=== PATIENT | male | born 1960 | race Caucasian/White ===

== ENCOUNTER 2018-09-19 16:38 | Inpatient (IN) | payer OTHER ==
[~2018-09-19] VITALS: Ht 165.1 cm; Wt 68.9 kg
--- NOTE | ~2018-09-19 | P ---
[facility] [place] [address] PROCEDURE REPORT Name: JUSTIN CHAVEZ Room #: 364-P [facility] IN M.R.#: [id number] Admission: 09/19/18 Attend Phys: Marbella Lewis Discharge: Date of : 64 Report #: [id number] THIS REPORT FOR: //name// CC: OBDULIA Lewis BRIEF HISTORY: The patient is a 58-year-old male with a history of rectal bleeding and anemia. POSTOPERATIVE DIAGNOSES: 1. Fully circumferential rectal mass lesion, partially obstruction consistent with rectal cancer. 2. Multiple colon polyps. 3. Diverticulosis coli, mild. MEDICATIONS: Deep sedation with propofol per anesthesia. SPECIMENS: 1. Cecal polyp. 2. Polyp at 60 cm x 2, 3. Polyp at 30 cm. 4. Biopsy mass lesion, rectum. ESTIMATED BLOOD LOSS: 5 mL. PROCEDURE: Colonoscopy to cecum and terminal ileum with snare polypectomy and biopsy. FINDINGS: Prior to propofol sedation, the procedure of colonoscopy discussed with the patient as well as potential risks and its complications. He indicates he understands and desires that we proceed. DESCRIPTION OF PROCEDURE: With the patient in the left lateral decubitus position, digital examination was completed, which revealed no abnormalities. Subsequently, the Olympus video colonoscope was introduced in the rectum, advanced under direct vision to the cecum. Upon entering the rectum, a fungating mass lesion was seen. It was an apple core type lesion and I very carefully and with a little difficulty, we were able to navigate the pediatric colonoscope through this strictured segment. We were then able to advance the scope fully through the remainder of the colon into the cecum. The cecum was identified by the ileocecal valve and the appendiceal orifice. I was able to visualize the distal segment of the terminal ileum, which was inspected and not to be unremarkable. At that point, the scope was slowly withdrawn and careful circumferential views obtained. Upon slow withdrawal of the scope, the prep was good. The mucosa was within normal limits, normal vascular pattern and normal light reflex. As we withdrew the scope, a diminutive polyp was seen in the [facility] [address] [place] [address] PROCEDURE REPORT Name: JUSTIN CHAVEZ Room #: 364-P ADM IN M.R.#: [id number] Admission: 09/19/18 Attend Phys: Marbella Lewis Discharge: Date of : 64 Report #: [id number] cecum and removed by biopsy. The scope was further withdrawn and in the descending colon at 60 cm, two polyps were seen, the largest was about 6-7 mm. They were sessile and both removed by cold snare polypectomy and recovered. The scope was further withdrawn and there was noted be a few moderate sized scattered diverticula. At 30 cm in the mid sigmoid colon, a 12-15 mm benign appearing pedunculated polyp was seen and removed by hot snare polypectomy. There was good hemostasis. The scope was then withdrawn further and no additional abnormalities were noted until the proximal rectum was reached at about 18 cm at which point the mass lesion was seen. It was superficially ulcerated involved the entire circumference. It was partially obstructing. Active bleeding was not encountered. It was probably at least 6 cm in length. The distal aspect of the mass was inspected. There was enough uninvolved distal rectum that I was able to retroflex the scope in the rectum with minimal difficulty. Upon retroflexion, no additional mass lesions were seen. The anal verge was unremarkable. Multiple biopsies were taken of the mass lesion. The patient tolerated the procedure well. Following removal of the scope, I repeated digital rectal exam in a sedated patient and pushing as hard as I could, I am not sure I could feel the distal aspect of the lesion. I can feel something on the tip of my finger and it may have been a fold rather than the lesion. The patient tolerated the procedure well. DISPOSITION: The patient with rectal bleeding and anemia. Unfortunately, he is found to have a large rectal mass. He will require surgical management. Multiple polyps removed and we will follow up on path, but all the polyps appear benign. We will obtain a CT scan of the chest, abdomen and pelvis for further evaluation. By: 1121 [id number] Bryan Wood MD /vika
[2018-09-19 16:41] VITALS: BP 184/83
[2018-09-19 17:01] LABS: HEMATOCRIT 22.6 % (42.0-52.0); HEMOGLOBIN 6.7 gm/dL (14.0-18.0); MCHC 29.6 g/dL (28.0-37.0); MCV 60.8 fL (80.0-100.0); PLATELET COUNT 323 thou/uL (150-400); RBC 3.71 mil/uL (4.50-6.00); RDW 19.8 % (10.5-14.5); WBC 8.1 thou/uL (4.0-11.0)
[2018-09-19 17:02] LABS: CALCIUM 8.4 mg/dL (8.5-10.1); CREATININE 0.9 mg/dL (0.7-1.3)
[2018-09-19 17:04] LABS: URINE BILIRUBIN NEGATIVE (Negative); URINE BLOOD NEGATIVE (Negative); URINE CLARITY CLEAR; URINE COLOR YELLOW; URINE GLUCOSE-RANDOM* NEGATIVE (Negative); URINE KETONES TRACE (Negative); URINE LEUKOCYTES NEGATIVE (Negative); URINE NITRITE NEGATIVE (Negative); URINE PROTEIN (DIPSTICK) NEGATIVE (Negative); URINE SPECIFIC GRAVITY 1.025 (1.005-1.035); URINE UROBILINOGEN 0.2 E.U./dl (0.2-1.0)
[2018-09-19 17:08] LABS: ALBUMIN 3.1 g/dL (3.4-5.0); TOTAL BILIRUBIN 0.2 mg/dL (<0.1-1.0); TOTAL PROTEIN 7.2 g/dL (6.4-8.2)
[2018-09-19 17:40] LABS: ABSOLUTE NEUTROPHILS 6.5 thou/uL (1.4-8.2); ANISOCYTOSIS 2+
[2018-09-19 17:41] LABS: HYPOCHROMASIA 2+; MICROCYTES 2+; POLYCHROMASIA OCCASIONAL
[2018-09-19 18:17] LABS: PROTIME 10.2 Seconds (9.3-11.4)
[2018-09-19 18:28] VITALS: BP 146/76; BP 146/81; BP 150/82; BP 156/83
[2018-09-19 19:15] VITALS: BP 157/77
[2018-09-19 19:45] VITALS: BP 146/76; BP 150/82; BP 156/83; BP 157/77
[2018-09-19 21:09] LABS: ABSOLUTE RETIC COUNT 0.0849 10^6/uL; OBSERVED RETIC COUNT 2.24 % (0.6-2.6)
[2018-09-19 21:37] LABS: % SATURATION 4 % (20-39); IRON 13 ug/dL (65-175); TIBC 340 ug/dL (250-450)
[2018-09-19 22:09] LABS: FERRITIN 4 ng/mL (26-388)
[2018-09-19 22:22] VITALS: BP 184/83
[2018-09-19 23:37] LABS: HEMATOCRIT 23.6 % (42.0-52.0); HEMOGLOBIN 7.2 gm/dL (14.0-18.0)
[2018-09-20] VITALS (7 sets, daily range): BP systolic 144–161; BP diastolic 55–95
[2018-09-20 05:07] LABS: HEMOGLOBIN 8.1 gm/dL (14.0-18.0); MCH 19.9 pg (26.0-34.0); MCHC 30.1 g/dL (28.0-37.0); RBC 4.07 mil/uL (4.50-6.00); RDW 25.5 % (10.5-14.5); WBC 6.3 thou/uL (4.0-11.0)
[2018-09-20 05:12] LABS: MCV 66.3 fL (80.0-100.0)
[2018-09-20 05:27] LABS: CALCIUM 8.2 mg/dL (8.5-10.1); CREATININE 0.8 mg/dL (0.7-1.3)
--- NOTE | 2018-09-20 22:52 | P ---
[facility] [place] [address] PROCEDURE REPORT Name: JUSTIN CHAVEZ Room #: 364-P [facility] IN M.R.#: [id number] Admission: 09/19/18 Attend Phys: Marbella Lewis Discharge: Date of : 64 Report #: [id number] THIS REPORT FOR: //name// CC: OBDULIA Lewis MD DATE OF SERVICE: 09/20/2018 PROCEDURE: Diagnostic esophagogastroduodenoscopy. INDICATION FOR PROCEDURE: This patient has severe iron deficiency and a 2-month history of melanotic stools. He is asymptomatic otherwise from the GI standpoint. Hemoglobin was noted to have been 7.2 at the time of admission. He denies taking nonsteroidal anti-inflammatory medications. He no longer drinks any alcohol. He quit drinking heavily in 2002. He does smoke crack cocaine. Informed consent for this procedure was obtained prior to the administration of any medication. The risks of the procedure, which include bleeding, perforation, infection, complications of sedation and the possibility I could miss something have been explained to the patient. He has indicated his consent by signing it. Propofol was slowly titrated before and during this procedure for patient comfort by the anesthesia service. The Olympus upper videoscope was introduced through the upper esophageal sphincter and advanced under direct visualization to the third portion of the duodenum. Findings are noted on withdrawal of the scope. The duodenal mucosa that was visualized is normal. Pylorus, normal mucosa. Antrum, normal mucosa. Body, normal mucosa. Cardia and fundus, normal mucosa. Retroflex view did not reveal any abnormalities. The scope was withdrawn into the esophagus. The esophageal mucosa appeared normal throughout its entirety. The Z-line is appropriately located at the top of the gastric folds and appears normal. I saw no evidence of any esophageal or gastric varices. The scope was withdrawn. The patient went to the recovery room in stable condition. He tolerated the procedure well. IMPRESSION: Normal EGD to the third portion of the duodenum. RECOMMENDATIONS: Proceed with colonoscopy as the next test in his evaluation of iron deficiency anemia that was severe. [address] [address] PROCEDURE REPORT Name: KATHYJUSTIN Room #: 364-P [facility] IN M.R.#: [id number] Admission: 09/19/18 Attend Phys: Marbella Lewis Discharge: Date of : 64 Report #: [id number] Thank you very much once again for allowing me to participate in his care, Dr. Lewis. <ELECTRONICALLY SIGNED> By: Emilia Landrum DO 09/20/18 2252 [id number] Emilia Landrum DO /nt
[2018-09-21 05:20] VITALS: BP 140/90
[2018-09-21 07:22] VITALS: BP 146/96
[2018-09-21] MEDS ORDERED: NIFEREX TABLET1 EACH PO (09:42)
[2018-09-21 12:35] VITALS: BP 145/87
[2018-09-21 15:59] VITALS: BP 150/95
[2018-09-21 20:54] VITALS: BP 131/81
[2018-09-22 06:02] VITALS: BP 126/66
[2018-09-22 15:06] VITALS: BP 128/76
[2018-09-22 21:20] VITALS: BP 143/85
[2018-09-23 04:50] VITALS: BP 143/90
[2018-09-23 08:03] VITALS: BP 129/84
[2018-09-23 16:08] VITALS: BP 148/92
[2018-09-23 20:30] VITALS: BP 145/83
[2018-09-24] VITALS (11 sets, daily range): BP systolic 122–154; BP diastolic 77–94
[2018-09-24 05:24] LABS: HEMATOCRIT 31.3 % (42.0-52.0); HEMOGLOBIN 9.5 gm/dL (14.0-18.0); MCH 20.5 pg (26.0-34.0); MCHC 30.5 g/dL (28.0-37.0); MCV 67.3 fL (80.0-100.0); RBC 4.64 mil/uL (4.50-6.00); RDW 26.4 % (10.5-14.5); WBC 9.7 thou/uL (4.0-11.0)
[2018-09-24] MEDS ORDERED: KEFLEX500 M1 PO (09:57)
--- NOTE | 2018-09-25 15:06 | PATH ---
[facility] [place] [address] PATHOLOGY RPT PROCEDURE Name: JANAK CHAVEZ Room #: 364-P [facility] IN M.R.#: [id number] Admission: 09/19/18 Date of : 64 Discharge: 09/24/18 Report #: [id number] Path Case #: [id number] [facility] Accession Number: [id number] . 01 Material submitted: . PART A: BX CECAL POLYP PART B: POLYP AT 60CM X2 PART C: POLYP AT 30CM PART D: BX RECTAL MASS . 01 Clinical history: . Pre-OP DX: Anemia, GI bleed Post-OP DX: Colon polyps, rectal mass, diverticulosis . 02 Diagnosis: A. Polyp, cecal polyp, endoscopic biopsy: - Tubular adenoma. - Negative for high-grade dysplasia. . B. Polyp x 2, at 60 cm, endoscopic biopsy: - All fragments sampled showing tubular adenoma. - Negative for high-grade dysplasia. . C. Poly, at 30 cm, endoscopic biopsy: - Tubular adenoma. - Negative for high-grade dysplasia. - Cauterized margin showing unremarkable mucosa. . D. Large intestinal mucosa, rectal mass, endoscopic biopsy: - INVASIVE MODERATELY DIFFERENTIATED ADENOCARCINOMA. [facility]/09/24/2018 . 02 Comment: MSI markers (four immunohistochemical stains) are performed per [facility] cancer committee protocol on block D1. The results will be issued in an addendum to follow. . Dr. Marline Hilario has seen a patient accounting representative slide of part D and concurs with the diagnosis rendered. Findings of this care are telephoned and verified with Ms. Joanne Magana, Nurse Practitioner for Dr. Wood, at 12:35 pm on 09/24/2018. (IUV:pit 09/24/2018) . 02 Addendum: . This addendum is issued subsequent to reviewing the well-controlled MSI immunohistochemical stain (4 immunohistochemical stains) on block D1. . [facility] [address] [place] [address] PATHOLOGY RPT PROCEDURE Name: JANAK CHAVEZ Room #: 364-P [facility] IN M.R.#: [id number] Admission: 09/19/18 Date of : 64 Discharge: 09/24/18 Report #: [id number] Path Case #: [id number] MICROSATELLITE INSTABILITY REPORT (MSI): . Reason for testing:To evaluate for evidence of defective mismatch repair proteins. . Method:Immunohistochemical staining for the presence or absence of protein expression of one or more of the following MMR protein markers: MLH1, MSH2, MSH6 and PMS2. . Tumor type:Invasive adenocarcinoma . Results: MLH1 -Preserved MSH2 -Preserved MSH6 -Preserved PMS2 -Preserved . Mismatch Repair Status:MMR Proficient (MMR-P) . Interpretation: . MMR-P) All four MMR proteins are preserved within tumor cells. This suggests the presence of normal DNA mismatch repair function within the tumor and an observable defect in mismatch repair is not identified. The likelihood that this patient has an inherited germline mutation syndrome due to defective mismatch repair is reduced but not totally eliminated. If the patient has a strong personal or family history of HPNCC/Lauren syndrome related cancers (colorectal, endometrial, gastric, ovarian, pancreatic, ureter/renal pelvis, biliary tract, brain, small bowel and Osiel-Wong syndrome), consider MSI testing by PCR methodology. Suggest clinical correlation and follow up. . These test results are designed for screening purposes only and are useful tools in identifying cancer patients that are more likely to have Lauren Syndrome related diagnoses. Tests should be interpreted in the context of clinical findings, family history and laboratory data. Abnormal IHC results for MMR protein expression are not considered diagnostic for Lauren Syndrome. . 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 Professional services performed by [facility] at [facility], [address] [place] [address] , [place] [address]. Technical services performed by [facility] at [address] [place] [address], [address], [place] [address]. MBR/09/25/2018 Addendum Electronically Signed by Catherine Rothman MD, Pathologist . 02 Electronically signed: [place] [address] PATHOLOGY RPT PROCEDURE Name: JANAK CHAVZE Room #: 364-P [facility] IN M.R.#: [id number] Admission: 09/19/18 Date of : 64 Discharge: 09/24/18 Report #: [id number] Path Case #: [id number] Catherine Rothman MD, Pathologist NPI- [id number] . 01 Gross description: . A. Received in formalin labeled "Large, Janak, BX cecal polyp," are 2 segments of harris soft tissue measuring 0.6 x 0.2 x 0.1 cm in aggregate dimensions and measuring 0.3 cm each in maximum dimension. The specimen is submitted entirely in cassette A1. . B. Received in formalin labeled "Large, Janak, polyp at 60 cm x2," are 4 segments of harris soft tissue measuring 1.6 x 0.9 x 0.6 cm in aggregate dimensions and ranging from 0.5 to 0.6 cm in maximum dimension. The specimen is submitted entirely in cassette B1. . C. Received in formalin labeled "Large, Janak, polyp at 30 cm," is a 0.9 x 0.8 x 0.8 cm polypoid piece of harris soft tissue. The margin is inked and the specimen is sectioned perpendicular to the margin and entirely submitted in cassette C1 and C2. . D. Received in formalin labeled "Large, Janak, BX rectal mass," are multiple segments of harris soft tissue measuring 1.1 x 0.4 x 0.1 cm in aggregate dimensions. The specimen is filtered and entirely submitted in cassette D1. (TSD; 09/21/2018) TOB/TOB . 02 Pathologist provided ICD-10: C20, D12.0, D12.6 . 02 CPT . 396545, 900374, 296190, 329501, N00848, D59339 Specimen Comment: A courtesy copy of this report has been sent to Specimen Comment: [phone], , . Specimen Comment: Report sent to ,DR VALDOVINOS / DR WHITE Specimen Comment: A duplicate report has been generated due to demographic updates. Performed at: [address] [place] [address] [address], [place], [place] [id number] MD Ignacio Amor MD Phone: [phone] Performed at: [address] [id number] MD Catherine Rothman MD Phone: [phone]
--- NOTE | 2018-09-26 16:06 | PATH ---
[facility] [address] [place] [address] PATHOLOGY RPT PROCEDURE Name: JANAK BERG Room #: 364-P [facility] IN M.R.#: [id number] Admission: 09/19/18 Date of : 64 Discharge: 09/24/18 Report #: [id number] Path Case #: [id number] [facility] Accession Number: [id number] . 01 Material submitted: . LIVER MASS . 01 Clinical history: . Liver masses . 02 Diagnosis: Liver, mass, needle core biopsy: - CONSISTENT WITH A METASTATIC ADENOCARCINOMA OF COLONIC ORIGIN, SEE COMMENT. (IUV:flor; 09/25/2018) QMS/09/26/2018 . 02 Comment: Examination shows an adenocarcinoma with central "dirty" necrosis. The tumor morphologically is similar to the primary "rectal mass" sampled in [id number], part D. Immunohistochemical stains are performed to confirm the diagnosis on block A1. The tumor shows strong membranous reactivity with CK20, and nuclear reactivity with CDX-2. The tumor is non-reactive to CK7. Immunohistochemical stains confirm the diagnosis rendered. The MSI markers (MSH2, MSH6, PMS2, and MLH-1) were performed on the rectal tumor. These are not repeated on the current case. Please refer to report number [id number] and its addendum for details. . Administrative Aide slide (A1-5) was co-reviewed by Dr. Irma Sears, who concurs with my diagnosis. Findings of this case are relayed to Ms. Rubio, nurse practitioner, at noon on 09/25/2018. . (IUV:flor; 09/25/2018) . 02 Electronically signed: . Catherine Rothman MD, Pathologist NPI- [id number] . 01 Gross description: . Received in formalin labeled "Janak Berg, liver mass," are 5 distinct needle cores of harris soft tissue ranging from 0.2 to 1.1 cm in length and measuring less than 0.1 cm each in diameter. The specimen is submitted entirely in cassette A1 through A3. (TSD; 09/24/2018) TOB/TOB . 02 Pathologist provided ICD-10: [address] [address] PATHOLOGY RPT PROCEDURE Name: JANAK BERG Room #: 364-P [facility] IN M.R.#: [id number] Admission: 09/19/18 Date of : 64 Discharge: 09/24/18 Report #: [id number] Path Case #: [id number] C78.7 . 02 [facility] . [id number], [id number], [id number] Specimen Comment: A courtesy copy of this report has been sent to Specimen Comment: [phone], . Specimen Comment: Report sent to DR VALDOVINOS / DR GASPAR Performed at: [address], [place] [id number] MD Ignacio Amor MD Phone: [phone] Performed at: [address] [id number] MD Catherine Rothman MD Phone: [phone]
== END 2018-09-24 17:38 | disposition home or self-care (01) | DRG 377 ==
LOC: ER 16:38 → 3W 18:13 → EROBS 18:13 → 3W 19:21
PROVIDERS: Emergency Medicine; Nurse Practitioner Family; Physician Assistant; ADMIT Hospitalist
PROC: 0DBN8ZZ Excision of Sigmoid Colon, Via Natural or Artificial Opening Endoscopic (ICD-10-PCS; principal; 2018-09-20)
PROC: 0DBP8ZX Excision of Rectum, Via Natural or Artificial Opening Endoscopic, Diagnostic (ICD-10-PCS; principal; 2018-09-20)
PROC: 30233N1 Transfusion of Nonautologous Red Blood Cells into Peripheral Vein, Percutaneous Approach (ICD-10-PCS; principal; 2018-09-20)
PROC: 0DBM8ZZ Excision of Descending Colon, Via Natural or Artificial Opening Endoscopic (ICD-10-PCS; principal; 2018-09-20)
PROC: 0DJ08ZZ Inspection of Upper Intestinal Tract, Via Natural or Artificial Opening Endoscopic (ICD-10-PCS; principal; 2018-09-20)
PROC: 0DBH8ZZ Excision of Cecum, Via Natural or Artificial Opening Endoscopic (ICD-10-PCS; principal; 2018-09-20)
PROC: 0FB23ZX Excision of Left Lobe Liver, Percutaneous Approach, Diagnostic (ICD-10-PCS; 2018-09-24)
DX: K57.31 Diverticulosis of large intestine without perforation or abscess with bleeding (principal); E43 Unspecified severe protein-calorie malnutrition; K63.5 Polyp of colon; F17.220 Nicotine dependence, chewing tobacco, uncomplicated; D33.3 Benign neoplasm of cranial nerves; D50.9 Iron deficiency anemia, unspecified; F19.10 Other psychoactive substance abuse, uncomplicated; K76.9 Liver disease, unspecified; K62.9 Disease of anus and rectum, unspecified; Z68.25 Body mass index [BMI] 25.0-25.9, adult; Z79.899 Other long term (current) drug therapy
CPT/HCPCS: 10879; 62110; 62900; 70005